=== PATIENT | female | born 1985 | race Hispanic/Latino ===

== ENCOUNTER 2017-11-01 20:41 | Emergency (ER) | payer OTHER ==
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
[2017-11-01 23:23] VITALS: BP 137/74; PULSE 73; RESP 15; TEMP 98
[2017-11-01 23:24] VITALS: O2SAT 97
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
== END 2017-11-01 23:23 | disposition home or self-care (01) ==
LOC: H.ER 20:41
DX: S09.90XA Unspecified injury of head, initial encounter (principal); S13.4XXA Sprain of ligaments of cervical spine, initial encounter; V43.52XA Car driver injured in collision with other type car in traffic accident, initial encounter; Y92.410 Unspecified street and highway as the place of occurrence of the external cause